=== PATIENT | female | born 1975 | race Caucasian/White ===

== ENCOUNTER 2018-03-22 13:30 | Emergency (ER) | payer BC ==
[2018-03-22] MEDS: predniSONE 20 MG TAB PO (14:24)
[2018-03-22] MEDS: IPRATROPIUM (NEB) 0.5 MG/2.5 ML AMP INH (14:39)
[2018-03-22] MEDS: ALBUTEROL 0.5% (NEB) 2.5 MG/0.5 ML AMP INH (14:39)
== END 2018-03-22 16:04 | disposition home or self-care (01) ==
LOC: FTE 13:30
DX: J18.1 Lobar pneumonia, unspecified organism (principal)
CPT/HCPCS: 71045; 87400; 94644; 99283-25